=== PATIENT | female | born 1990 | race American Indian/Alaskan Native ===

== ENCOUNTER 2016-06-10 11:36 | Emergency (ER) | payer SELFPAY ==
[2016-06-10 13:02] VITALS: BP 115/63
--- NOTE | 2016-06-10 13:30 | Emergency Department Report ---
ED Female HPI - General Chief complaint: Pain General Stated complaint: ABD PAIN Time Seen by Provider: 06/10/16 13:26 Source: patient Mode of arrival: Ambulatory Limitations: No Limitations - History of Present Illness Initial comments: Patient reports pelvic and vaginal pain that started two days ago. She was sexually activity with one male partner and denies using any contraception. LMP 05/31/16 Complaint: pelvic pain, possible STD Onset/Timin -: days(s) Location: suprapubic Radiation: non-radiating Severity: moderate Severity scale (0 -10): 8 Quality: dull Consistency: constant Improves with: none Worsens with: urination, intercourse Are you Now?: No Last Menstrual Period: 05/31/16 EDC: 03/07/17 Associated Symptoms: denies: vaginal discharge, vaginal bleeding, abdominal pain , headaches, loss of appetite, dysuria, hematuria, rash, seizure, shortness of breath, syncope, weakness - Related Data Sexually active: Yes Previous Rx's Medication Instructions Recorded Last Taken Type Metaxalone [Skelaxin] 800 mg PO TID #30 tablet 04/28/15 Unknown Rx traMADol [Ultram] 50 mg PO Q6HR PRN #20 tablet 04/28/15 Unknown Rx Allergies Allergy/AdvReac Type Severity Reaction Status Date / Time No Known Allergies Allergy Unverified 01/18/13 08:40 ED Review of Systems ROS: Stated complaint: ABD PAIN Other details as noted in HPI Constitutional: denies: chills, diaphoresis, fever, malaise Respiratory: denies: cough, orthopnea, shortness of breath, SOB with exertion, SOB at rest, stridor, wheezing Cardiovascular: denies: chest pain, palpitations, dyspnea on exertion, orthopnea , edema, syncope, paroxysmal nocturnal dyspnea Gastrointestinal: abdominal pain. denies: nausea, vomiting, diarrhea, constipation, hematemesis, melena, hematochezia Genitourinary: denies: urgency, dysuria, frequency, hematuria, discharge, abnormal menses, dyspareunia Musculoskeletal: denies: back pain, joint swelling, arthralgia Skin: denies: rash, lesions, change in hair/nails, pruritus ED Past Medical Hx - Past Medical History Hx Kidney Stones: Yes - Surgical History Additional Surgical History: ectopic , - Social History Smoking Status: Never Smoker Substance Use Type: None - Medications Home Medications: Home Medications Medication Instructions Recorded Confirmed Last Taken Type Metaxalone [Skelaxin] 800 mg PO TID #30 tablet 04/28/15 Unknown Rx traMADol [Ultram] 50 mg PO Q6HR PRN #20 tablet 04/28/15 Unknown Rx ED Physical Exam - General Limitations: No Limitations General appearance: alert, in no apparent distress - Head Head exam: Present: atraumatic - ENT ENT exam: Present: normal exam, mucous membranes moist - Neck Neck exam: Present: normal inspection, full ROM. Absent: tenderness, meningismus, lymphadenopathy, thyromegaly - Respiratory Respiratory exam: Present: normal lung sounds bilaterally. Absent: respiratory distress, wheezes, rales, rhonchi, stridor, chest wall tenderness, accessory muscle use, decreased breath sounds, prolonged expiratory - Cardiovascular Cardiovascular Exam: Present: regular rate, normal rhythm, normal heart sounds. Absent: systolic murmur, diastolic murmur, rubs, gallop - GI/Abdominal GI/Abdominal exam: Present: soft, normal bowel sounds. Absent: distended, tenderness, guarding, rebound, rigid - Extremities Exam Extremities exam: Present: normal inspection, full ROM, normal capillary refill. Absent: tenderness, pedal edema, joint swelling, calf tenderness - Back Exam Back exam: Present: normal inspection, full ROM. Absent: tenderness, CVA tenderness (R), CVA tenderness (L), muscle spasm, paraspinal tenderness, vertebral tenderness, rash noted - Skin Skin exam: Present: warm, dry, intact, normal color. Absent: rash ED Course Vital Signs 06/10/16 12:57 Temperature 98.4 F Pulse Rate 74 Respiratory 16 Rate Blood Pressure 115/63 O2 Sat by Pulse 100 Oximetry - Reevaluation(s) Reevaluation #1: 06/10/16 13:28 pelvic examination and laboratory studies ordered ED Medical Decision Making - Lab Data Microbiology 06/10/16 Unknown Cervix Wet Prep - Final Negative for Yeast, Clue Cells or Trichomoniasis Vital Signs 06/10/16 12:57 Temperature 98.4 F Pulse Rate 74 Respiratory 16 Rate Blood Pressure 115/63 O2 Sat by Pulse 100 Oximetry Lab Results 06/10/16 06/10/16 Range/Units 13:17 13:42 HCG, Quant < 2 (0-4) mIU/mL Urine Color Yellow (Yellow) Urine Turbidity Clear (Clear) Urine pH 7.0 (5.0-7.0) Ur Specific [place] 1.016 (1.003-1.030) Urine Protein <15 mg/dl (Negative) mg/dL Urine Glucose (UA) Neg (Negative) mg/dL Urine Ketones 20 (Negative) mg/dL Urine Blood Sm (Negative) Urine Nitrite Neg (Negative) Urine Bilirubin Neg (Negative) Urine Urobilinogen < 2.0 (<2.0) mg/dL Ur Leukocyte Esterase Neg (Negative) Urine WBC (Auto) < 1.0 (0.0-6.0) /HPF Urine RBC (Auto) 2.0 (0.0-6.0) /HPF U Epithel Cells (Auto) 2.0 (0-13.0) /HPF Urine Mucus 1+ /HPF - Medical Decision Making During the course of ED, pelvic examination and laboratory studies were ordered. Laboratory studies were unremarkable pending send out labs. 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 ED Disposition Disposition: DISCHARGED TO HOME OR SELFCARE Is pt being admited?: No Does the pt Need Aspirin: No Condition: Stable Additional Instructions: Follow up with the selective referral given at discharge. Return back to the ED for worsening symptoms Referrals: ELLI PEREZ MD [Primary Care Provider] - 3-5 Days HARPER MCCORMICK MD [Staff Physician] - 3-5 Days Forms: Work/School Release Form(ED) Time of Disposition: 14:26
[2016-06-10 14:15] LABS: Bilirubin,Urine NEG (Negative)
[2016-06-10 14:16] LABS: Blood,Urine SM (Negative); Ketones,Urine 20 mg/dL (Negative); Leukocyte Esterase,Urine NEG (Negative); Mucus,Urine 1+ /HPF; Nitrite,Urine NEG (Negative); Protein,Urine <15 mg/dL mg/dL (Negative); Urobilinogen,Urine < 2.0 mg/dL (<2.0)
[2016-06-10 14:46] LABS: WBC,Urine < 1.0 /HPF (0.0-6.0)
== END 2016-06-10 15:15 | disposition home or self-care (01) ==
LOC: ED 11:36
DX: R10.2 Pelvic and perineal pain (principal)
CPT/HCPCS: 36415; 81001; 84702; 87210; 87591; 99283

== ENCOUNTER 2018-08-25 14:27 | Emergency (ER) | payer SELFPAY ==
--- NOTE | 2018-08-25 14:56 | Emergency Department Report ---
Blank Doc - Documentation Documentation: This is a 27-year-old female that presents with right flank pain. Denies any urinary symptoms. This initial assessment/diagnostic orders/clinical plan/treatment(s) is/are subject to change based on patient's health status, clinical progression and re- assessment by fellow clinical providers in the ED. Further treatment and workup at subsequent clinical providers discretion. Patient/guardians urged not to elope from the ED as their condition may be serious if not clinically assessed and managed. Initial orders include: 1- Patient sent to [facility] for further evaluation and treatment 2- UA
[2018-08-25 14:58] VITALS: BP 117/65
[2018-08-25 15:35] LABS: Bilirubin,Urine NEG (Negative); Blood,Urine NEG (Negative); Color,Urine Yellow (Yellow); Mucus,Urine 3+ /HPF; Protein,Urine <15 mg/dL mg/dL (Negative); Urobilinogen,Urine < 2.0 mg/dL (<2.0)
[2018-08-25 15:36] LABS: HCG Qualitative,Urine Negative (Negative)
[2018-08-25] MEDS ORDERED: ZOFRAN ODT PO ONE (18:18)
[2018-08-25] MEDS ORDERED: IBUPROFEN PO ONE (18:18)
--- NOTE | 2018-08-25 18:32 | Emergency Department Report ---
ED Abdominal Pain HPI - General Chief Complaint: Abdominal Pain Stated Complaint: LOWER R SIDE PAIN Time Seen by Provider: 08/25/18 14:55 Source: patient Mode of arrival: Ambulatory Limitations: No Limitations - History of Present Illness Initial Comments: This is 27-year-old female with a history of kidney stone 2 years ago presents to the ED complaining of right-sided flank pain for the past week. Patient describes pain as sharp, intermittent, nonradiating elsewhere. Patient denies fever/chills/nausea vomiting/dysuria/vaginal discharge or pelvic pain. MD Complaint: flank pain Location: R flank Radiation: none Migration to: no migration Severity: mild Severity scale (0 -10): 4 Quality: cramping, aching Consistency: intermittent - Related Data LMP Date: 08/21/18 Previous Rx's Medication Instructions Recorded Last Taken Type Metaxalone [Skelaxin] 800 mg PO TID #30 tablet 04/28/15 Unknown Rx Ibuprofen [Motrin 800 MG tab] 800 mg PO TID #20 tablet 08/25/18 Unknown Rx traMADol [Ultram 50 MG tab] 50 mg PO Q6HR PRN #10 tablet 08/25/18 Unknown Rx Allergies Allergy/AdvReac Type Severity Reaction Status Date / Time No Known Allergies Allergy Unverified 01/18/13 08:40 ED Review of Systems ROS: Stated complaint: LOWER R SIDE PAIN Other details as noted in HPI Constitutional: denies: chills, fever Eyes: denies: eye pain, eye discharge, vision change ENT: denies: ear pain, throat pain Respiratory: denies: cough, shortness of breath, wheezing Cardiovascular: denies: chest pain, palpitations Endocrine: no symptoms reported Gastrointestinal: denies: abdominal pain, nausea, diarrhea Genitourinary: denies: urgency, dysuria, discharge Musculoskeletal: denies: back pain, joint swelling, arthralgia Skin: denies: rash, lesions Neurological: denies: headache, weakness, paresthesias Psychiatric: denies: anxiety, depression Hematological/Lymphatic: denies: easy bleeding, easy bruising ED Past Medical Hx - Past Medical History Previous Medical History?: Yes Hx Kidney Stones: Yes - Surgical History Past Surgical History?: Yes Additional Surgical History: ectopic , - Social History Smoking Status: Never Smoker Substance Use Type: None - Medications Home Medications: Home Medications Medication Instructions Recorded Confirmed Last Taken Type Metaxalone [Skelaxin] 800 mg PO TID #30 tablet 04/28/15 Unknown Rx Ibuprofen [Motrin 800 MG tab] 800 mg PO TID #20 tablet 08/25/18 Unknown Rx traMADol [Ultram 50 MG tab] 50 mg PO Q6HR PRN #10 tablet 08/25/18 Unknown Rx ED Physical Exam - General Limitations: No Limitations General appearance: alert, in no apparent distress - Head Head exam: Present: atraumatic, normocephalic - Eye Eye exam: Present: normal appearance - ENT ENT exam: Present: mucous membranes moist - Neck Neck exam: Present: normal inspection - Respiratory Respiratory exam: Present: normal lung sounds bilaterally. Absent: respiratory distress - Cardiovascular Cardiovascular Exam: Present: regular rate, normal rhythm. Absent: systolic murmur, diastolic murmur, rubs, gallop - GI/Abdominal GI/Abdominal exam: Present: soft, normal bowel sounds. Absent: distended, tenderness, guarding, organomegaly, mass, bruit, pulsatile mass - Extremities Exam Extremities exam: Present: normal inspection - Back Exam Back exam: Present: normal inspection, full ROM. Absent: tenderness, CVA tenderness (R), CVA tenderness (L) - Neurological Exam Neurological exam: Present: alert, oriented X3 - Psychiatric Psychiatric exam: Present: normal affect, normal mood - Skin Skin exam: Present: warm, dry, intact, normal color. Absent: rash ED Course Vital Signs 08/25/18 14:56 Temperature 98.4 F Pulse Rate 72 Respiratory 18 Rate Blood Pressure 117/65 O2 Sat by Pulse 100 Oximetry ED Medical Decision Making - Medical Decision Making 27-year-old female presents with right-sided flank pain. Urinalysis, presents to all negative. She denied to have Motrin and Zofran in the ED. Patient is in no acute distress. Signed discussed findings with the patient. Patient has no CVA tenderness upon examination. 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 Discussed the patient if this is repeated of the kidney stone will pass on its own. She states she understands instructions and will follow-up. She is resting comfortably in the bed. Critical care attestation.: If time is entered above; I have spent that time in minutes in the direct care of this critically ill patient, excluding procedure time. ED Disposition Clinical Impression: Right flank pain Disposition: DC-01 TO HOME OR SELFCARE Is pt being admited?: No Does the pt Need Aspirin: No Condition: Stable Instructions: Kidney Stones (ED), Abdominal Pain (ED), Flank Pain (ED) Additional Instructions: Make sure to follow up with the primary care physician as discussed. Take all your medications as you've been prescribed. If you have any worsening symptoms or develop new symptoms please return to ED immediately. Prescriptions: Ibuprofen [Motrin 800 MG tab] 800 mg PO TID #20 tablet traMADol [Ultram 50 MG tab] 50 mg PO Q6HR PRN #10 tablet PRN Reason: Pain Referrals: PRIMARY CARE, [Referring] - 3-5 Days MARLIN SANTIAGO MD, PHD [Referring] - 3-5 Days [facility] [Outside] - 3-5 Days [facility] [Outside] - 3-5 Days Forms: Work/School Release Form(ED) Time of Disposition: 18:52
== END 2018-08-25 19:01 | disposition home or self-care (01) ==
LOC: ED 14:27
DX: R10.9 Unspecified abdominal pain (principal); Z87.442 Personal history of urinary calculi
CPT/HCPCS: 81001; 81025; 99283; Q0162

== ENCOUNTER 2019-04-05 14:14 | Emergency (ER) | payer SELFPAY ==
[2019-04-05 14:39] VITALS: BP 104/59
[2019-04-05] MEDS ORDERED: IBUPROFEN 800 MG TAB PO ONE (20:34)
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
== END 2019-04-05 21:59 | disposition home or self-care (01) ==
LOC: ED 14:14
DX: S39.012A Strain of muscle, fascia and tendon of lower back, initial encounter (principal); Z87.442 Personal history of urinary calculi; Z79.899 Other long term (current) drug therapy; V49.49XA Driver injured in collision with other motor vehicles in traffic accident, initial encounter; Y93.89 Activity, other specified; Y92.488 Other paved roadways as the place of occurrence of the external cause; Y99.8 Other external cause status
CPT/HCPCS: 72100